=== PATIENT | female | born 1935 ===

== ENCOUNTER → 2021-12-11 | Outpatient (CLI) | payer MEDICAID | END | disposition home or self-care (01) | LOC: EDSEX 11:09 → Rad HDHVI 11:09 | PROVIDERS: ATTEND Internal Medicine | DX: I08.3 Combined rheumatic disorders of mitral, aortic and tricuspid valves (principal); I48.91 Unspecified atrial fibrillation; I10 Essential (primary) hypertension | CPT/HCPCS: 93306 ==

== ENCOUNTER → 2021-12-19 | Outpatient (CLI) | payer MEDICAID ==
[~2021-12-19] VITALS: Ht 152.4 cm; Wt 47.6 kg
[~2021-12-19] MED LIST: ADENOSINE 40 MG in GIVE UN-DILUTED 0 ML IV ONE; ADENOSINE 90 MG/30 ML INJ IV ONE
== END | disposition home or self-care (01) ==
LOC: Rad HDHVI 09:19
PROVIDERS: ATTEND Internal Medicine
DX: I48.91 Unspecified atrial fibrillation (principal); I10 Essential (primary) hypertension; E78.5 Hyperlipidemia, unspecified; E11.9 Type 2 diabetes mellitus without complications
CPT/HCPCS: 78452; 93005; 96374; 96375; A9500; J0153